=== PATIENT | male | born 1965 | race Caucasian/White ===

== ENCOUNTER 2023-04-03 08:46 | Inpatient (IN) | payer BC ==
[~2023-04-03] VITALS: Ht 154.7 cm; Wt 97.3 kg
[2023-04-03] VITALS (11 sets, daily range): BP systolic 121–151; BP diastolic 45–85; PULSE 64–74; RESP 13–30; TEMP 94.6–98.5
[2023-04-03] MEDS ORDERED: IPRATROPIUM BROMIDE (0.02%) 0.5MG/2.5ML NEB HHN STA (08:50)
[2023-04-03] MEDS ORDERED: METHYLPREDNISOLONE SOD SUCC 125MG/2ML (ACT-O-VIAL) IV STA (08:50)
[2023-04-03] MEDS ORDERED: MAGNESIUM 2 G PREMIX 50 ML IV STA (08:50)
[2023-04-03] MEDS ORDERED: ALBUTEROL (0.083%) 2.5MG/3ML NEB HHN STA (08:50)
[2023-04-03] MEDS ORDERED: METHYLPREDNISOLONE SOD SUCC 125MG VIAL IV SCH (09:00)
[2023-04-03 09:16] LABS: BASOPHILS % 1.1 % (0.0-2.0); EOSINOPHILS % 1.5 % (0.0-5.0); HEMATOCRIT. 43.2 % (42.0-52.0); HEMOGLOBIN. 14.7 g/dL (14.0-18.0); LYMPHOCYTES % 38.4 % (20.0-50.0); MEAN CORPUSCULAR HEMOGLOBIN 32.7 pg (28.0-32.0); MEAN CORPUSCULAR HGB CONC 33.9 g/dL (31.0-37.0); MEAN CORPUSCULAR VOLUME 96.2 fL (80.0-94.0); MEAN PLATELET VOLUME 8.4 fl (7.4-10.4); MONOCYTES % 7.9 % (2.0-8.0); NEUTROPHILS % 51.1 % (40.0-76.0); PLATELET 272 x1000/uL (130-400); RED BLOOD CELL COUNT 4.49 mill/uL (4.7-6.1); RED CELL DISTRIBUTION WIDTH 12.3 % (11.6-14.6); WHITE BLOOD COUNT 6.6 x1000/uL (4.5-11.0)
[2023-04-03 09:26] LABS: ALBUMIN 3.6 g/dL (3.4-5.0); CHLORIDE 111 mEq/L (98-107); INDEX HEMOLYSI 1 (1-3); INDEX ICTERIC 1 (1-4); INDEX LIPEMIC 1 (1-3); POTASSIUM 3.6 mEq/L (3.5-5.1); SODIUM 138 mEq/L (136-145)
[2023-04-03 09:34] LABS: BG BASE EXCESS -2.5 mmol/L (-2.0-2.0); BG CARBOXYHEMOGLOBIN 3.2 % (0.5-1.5); BG DEOXYHEMOGLOBIN 0.5 % (0.0-5.0); BG METHEMOGLOBIN 0.5 % (0.0-1.5); BG OXYGEN SATURATION 99.5 % (92.0-98.5); BG OXYHEMOGLOBIN 95.8 % (94.0-97.0); BG PCO2 42.4 mmHg (35.0-45.0); BG PH 7.353 (7.350-7.450); BG PO2 332.7 mmHg (75.0-100.0); BG SAMPLE SITE RIGHT RADIAL; BG TOTAL HEMOGLOBIN 15.4 g/dL (12.0-18.0); BG TOTAL RESPIRATORY RATE 29 b/min; BG VENT MODE MASK - BIPAP
[2023-04-03 09:37] LABS: ALANINE AMINOTRANSFERASE 36 IU/L (13-61); ASPARTATE AMINOTRANSFERASE 20 IU/L (15-37); BILIRUBIN TOTAL 0.3 mg/dL (0.1-1.0); CALCIUM 8.8 mg/dL (8.5-10.1); CARBON DIOXIDE 24 mEq/L (21-32); CREATININE 0.9 mg/dL (0.6-1.3); GLUCOSE 167 mg/dL (70-105); NT PRO B-TYPE NATRIURETIC PEP 96 pg/mL (5-125); PROTEIN TOTAL 7.1 g/dL (6.0-8.3); TROPONIN I HIGH SENSITIVITY 6 ng/L (<78); UREA NITROGEN BLOOD 12 mg/dL (7-21)
[2023-04-03 09:52] LABS: BG FRACTION INSPIRED OXYGEN 40
[2023-04-03] MEDS ORDERED: ACETAMINOPHEN 325MG TABLET PO PRN ×2 (11:30)
[2023-04-03] MEDS ORDERED: IPRATROPIUM/ALBUTEROL 0.5-3(2.5)MG/3ML NEB HHN PRN (11:30)
[2023-04-03] MEDS ORDERED: ONDANSETRON HCL 4MG/2ML INJ IV PRN (11:30)
[2023-04-03] MEDS ORDERED: DEXTROSE 50% WATER 50ML SYRINGE IV PRN ×2 (11:30→19:45)
[2023-04-03 12:13] LABS: INDEX HEMOLYSI 2 (1-3)
[2023-04-03 12:16] LABS: AMYLASE 41 IU/L (25-115)
[2023-04-03] MEDS: BLOOD SUGAR DIAGNOSTIC STRIP TEST SCH ×3 (12:30→20:28)
[2023-04-03] MEDS: MULTIVITAMINS,THER W-MINERALS TABLET PO SCH (13:35)
[2023-04-03] MEDS: METHYLPREDNISOLONE SOD SUCC 40MG/ML (ACT-O-VIAL) IV SCH ×2 (13:35→21:38)
[2023-04-03] MEDS: THIAMINE HCL 100MG TABLET PO SCH (13:35)
[2023-04-03 16:48] LABS: CREATINE KINASE MB FRACTION 1.9 ng/mL (0.5-3.6)
[2023-04-03] MEDS: IPRATROPIUM/ALBUTEROL 0.5-3(2.5)MG/3ML NEB HHN SCH (16:57)
[2023-04-03] MEDS: AZITHROMYCIN 500 MG in DEXT 5% WATER 250 ML IV SCH (17:04)
[2023-04-03] MEDS: INSULIN LISPRO 100 UNITS/ML SUBCUT SCH (20:34)
[2023-04-03] MEDS: FAMOTIDINE 20MG TABLET PO SCH (20:34)
[2023-04-04] VITALS (13 sets, daily range): BP systolic 108–139; BP diastolic 65–91; PULSE 61–83; RESP 15–20; TEMP 97.5–98; O2SAT 94–100
[2023-04-04] MEDS: IPRATROPIUM/ALBUTEROL 0.5-3(2.5)MG/3ML NEB HHN SCH ×6 (00:16→22:26)
[2023-04-04 01:34] LABS: CREATINE KINASE MB FRACTION 1.8 ng/mL (0.5-3.6)
[2023-04-04] MEDS: METHYLPREDNISOLONE SOD SUCC 40MG/ML (ACT-O-VIAL) IV SCH ×3 (05:39→22:09)
[2023-04-04 07:25] LABS: CALCIUM 8.5 mg/dL (8.5-10.1); CARBON DIOXIDE 25 mEq/L (21-32); CHLORIDE 109 mEq/L (98-107); INDEX HEMOLYSI 1 (1-3); INDEX ICTERIC 1 (1-4); INDEX LIPEMIC 1 (1-3); SODIUM 137 mEq/L (136-145); UREA NITROGEN BLOOD 11 mg/dL (7-21)
[2023-04-04 07:29] LABS: HEMATOCRIT. 40.3 % (42.0-52.0); MEAN CORPUSCULAR HEMOGLOBIN 33.1 pg (28.0-32.0); MEAN CORPUSCULAR HGB CONC 34.6 g/dL (31.0-37.0); MEAN CORPUSCULAR VOLUME 95.7 fL (80.0-94.0); MEAN PLATELET VOLUME 9.2 fl (7.4-10.4); PLATELET 232 x1000/uL (130-400); RED BLOOD CELL COUNT 4.21 mill/uL (4.7-6.1); RED CELL DISTRIBUTION WIDTH 12.5 % (11.6-14.6); WHITE BLOOD COUNT 9.6 x1000/uL (4.5-11.0)
[2023-04-04] MEDS: BLOOD SUGAR DIAGNOSTIC STRIP TEST SCH ×4 (07:30→22:05)
[2023-04-04 07:32] LABS: CREATININE 0.8 mg/dL (0.6-1.3); GLUCOSE 145 mg/dL (70-105); PHOSPHORUS 1.9 mg/dL (2.5-4.9)
[2023-04-04 07:37] LABS: DIFFERENTIAL COMMENT 1
[2023-04-04] MEDS: THIAMINE HCL 100MG TABLET PO SCH (09:17)
[2023-04-04] MEDS: INSULIN LISPRO 100 UNITS/ML SUBCUT SCH ×4 (09:17→22:10)
[2023-04-04] MEDS: MULTIVITAMINS,THER W-MINERALS TABLET PO SCH (09:17)
[2023-04-04] MEDS ORDERED: SODIUM PHOS,M-BASIC-D-BASIC 15 MM in DEXT 5% WATER 245 ML IV SCH (10:00)
[2023-04-04 11:41] LABS: PLATELET ESTIMATE NORMAL
[2023-04-04] MEDS: AZITHROMYCIN 500 MG in DEXT 5% WATER 250 ML IV SCH (14:53)
[2023-04-04] MEDS ORDERED: IOHEXOL-350 100 ML BOTTLE ONE (21:34)
[2023-04-04] MEDS: FAMOTIDINE 20MG TABLET PO SCH (22:09)
[2023-04-04] MEDS: NICOTINE 7MG PATCH TD SCH (22:32)
[2023-04-05] VITALS (8 sets, daily range): BP systolic 103–132; BP diastolic 59–87; PULSE 64–75; RESP 18–22; TEMP 97.5–98.3; O2SAT 95–98
[2023-04-05 06:09] LABS: HEMATOCRIT. 41.6 % (42.0-52.0); HEMOGLOBIN. 13.8 g/dL (14.0-18.0); MEAN CORPUSCULAR HEMOGLOBIN 32.1 pg (28.0-32.0); MEAN CORPUSCULAR HGB CONC 33.3 g/dL (31.0-37.0); MEAN CORPUSCULAR VOLUME 96.5 fL (80.0-94.0); MEAN PLATELET VOLUME 9.1 fl (7.4-10.4); PLATELET 258 x1000/uL (130-400); RED BLOOD CELL COUNT 4.31 mill/uL (4.7-6.1); RED CELL DISTRIBUTION WIDTH 13.1 % (11.6-14.6); WHITE BLOOD COUNT 13.4 x1000/uL (4.5-11.0)
[2023-04-05 06:10] LABS: CHLORIDE 107 mEq/L (98-107); DIFFERENTIAL COMMENT 1; INDEX HEMOLYSI 1 (1-3); INDEX ICTERIC 1 (1-4); INDEX LIPEMIC 1 (1-3); POTASSIUM 4.3 mEq/L (3.5-5.1); SODIUM 138 mEq/L (136-145)
[2023-04-05 06:16] LABS: CALCIUM 9.5 mg/dL (8.5-10.1); CARBON DIOXIDE 24 mEq/L (21-32); CREATININE 0.8 mg/dL (0.6-1.3); GLUCOSE 147 mg/dL (70-105); UREA NITROGEN BLOOD 13 mg/dL (7-21)
[2023-04-05] MEDS: BLOOD SUGAR DIAGNOSTIC STRIP TEST SCH ×2 (06:43→12:59)
[2023-04-05] MEDS: INSULIN LISPRO 100 UNITS/ML SUBCUT SCH ×2 (08:00→12:58)
[2023-04-05] MEDS: IPRATROPIUM/ALBUTEROL 0.5-3(2.5)MG/3ML NEB HHN SCH ×2 (08:14→16:42)
[2023-04-05] MEDS: THIAMINE HCL 100MG TABLET PO SCH (08:56)
[2023-04-05] MEDS: MULTIVITAMINS,THER W-MINERALS TABLET PO SCH (08:56)
[2023-04-05] MEDS: NICOTINE 7MG PATCH TD SCH (08:57)
[2023-04-05] MEDS: METHYLPREDNISOLONE SOD SUCC 40MG/ML (ACT-O-VIAL) IV SCH (08:57)
[2023-04-05 14:13] LABS: PLATELET ESTIMATE NORMAL
[2023-04-05] MEDS ORDERED: AZITHROMYCIN 500 MG TABLET PO SCH (15:00)
[2023-04-05] MEDS ORDERED: PRED5SOL22 PO (17:01)
[2023-04-05] MEDS ORDERED: [UNRECOGNIZED DRUG - CODE] PO (17:01)
[2023-04-05] MEDS ORDERED: PRED20SO3 PO (17:01)
[2023-04-05] MEDS ORDERED: ALBU05 NEB (17:02)
== END 2023-04-05 17:20 | disposition home or self-care (01) | DRG 189 ==
LOC: ER 08:46 → 5EST 10:52 → EDBEDREQTM 10:57 → EDBEDREQ 10:57
PROVIDERS: ADMIT Hospitalist; ATTEND Hospitalist
PROC: 5A09357 Assistance with Respiratory Ventilation, Less than 24 Consecutive Hours, Continuous Positive Airway Pressure (ICD-10-PCS; principal; 2023-04-03)
DX: J96.01 Acute respiratory failure with hypoxia (principal); J44.1 Chronic obstructive pulmonary disease with (acute) exacerbation; F19.10 Other psychoactive substance abuse, uncomplicated; E11.9 Type 2 diabetes mellitus without complications; F10.10 Alcohol abuse, uncomplicated; F17.210 Nicotine dependence, cigarettes, uncomplicated; R79.89 Other specified abnormal findings of blood chemistry; S30.1XXA Contusion of abdominal wall, initial encounter; X58.XXXA Exposure to other specified factors, initial encounter; Y93.89 Activity, other specified; Y92.89 Other specified places as the place of occurrence of the external cause; Y99.8 Other external cause status
CPT/HCPCS: 36415; 36600; 71045; 71275; 74018; 76705; 80048; 80053; 82150; 82375; 82553; 82805; 82962; 83036; 83735; 83880; 84100; 84484; 85025; 85379; 93005; 93970; 94640; 94644; 94660; 99285; J0456; J1815; J2920; J2930; J3475; J3490; J7060; Q9967

== ENCOUNTER 2023-04-05 21:56 | Emergency (ER) | payer BC ==
[~2023-04-05] VITALS: Ht 175.3 cm; Wt 95.0 kg
[~2023-04-05 21:56] MED LIST: ALBU05 NEB; PRED20SO3 PO; PRED5SOL22 PO; [UNRECOGNIZED DRUG - CODE] PO
[2023-04-05] MEDS ORDERED: PREDNISONE 20MG TABLET PO NR ×2 (22:25→23:00)
[2023-04-05] MEDS ORDERED: ALBUTEROL (0.083%) 2.5MG/3ML NEB HHN NR (22:25)
[2023-04-05] MEDS ORDERED: IPRATROPIUM BROMIDE (0.02%) 0.5MG/2.5ML NEB HHN NR (22:25)
[2023-04-05 22:43] LABS: BASOPHILS % 0.1 % (0.0-2.0); HEMATOCRIT. 41.2 % (42.0-52.0); LYMPHOCYTES % 10.7 % (20.0-50.0); MEAN CORPUSCULAR HEMOGLOBIN 32.8 pg (28.0-32.0); MEAN CORPUSCULAR HGB CONC 34.1 g/dL (31.0-37.0); MEAN CORPUSCULAR VOLUME 96.2 fL (80.0-94.0); MEAN PLATELET VOLUME 8.9 fl (7.4-10.4); NEUTROPHILS % 81.2 % (40.0-76.0); PLATELET 287 x1000/uL (130-400); RED BLOOD CELL COUNT 4.28 mill/uL (4.7-6.1); RED CELL DISTRIBUTION WIDTH 12.6 % (11.6-14.6); WHITE BLOOD COUNT 15.5 x1000/uL (4.5-11.0)
[2023-04-05 22:52] LABS: CHLORIDE 107 mEq/L (98-107); INDEX HEMOLYSI 1 (1-3); INDEX ICTERIC 1 (1-4); INDEX LIPEMIC 1 (1-3); SODIUM 138 mEq/L (136-145)
[2023-04-05] MEDS ORDERED: METHYLPREDNISOLONE SOD SUCC 125MG/2ML (ACT-O-VIAL) IV STA (22:53)
[2023-04-05] MEDS ORDERED: ONDANSETRON HCL 4MG/2ML INJ IV ONE (23:00)
[2023-04-05 23:01] LABS: ALANINE AMINOTRANSFERASE 38 IU/L (13-61); ALBUMIN 3.6 g/dL (3.4-5.0); ASPARTATE AMINOTRANSFERASE 14 IU/L (15-37); BILIRUBIN TOTAL 0.2 mg/dL (0.1-1.0); CALCIUM 9.1 mg/dL (8.5-10.1); CARBON DIOXIDE 28 mEq/L (21-32); CREATININE 0.8 mg/dL (0.6-1.3); ETHANOL BLOOD < 10 mg/dL (-10); GLUCOSE 103 mg/dL (70-105); NT PRO B-TYPE NATRIURETIC PEP 135 pg/mL (5-125); PROTEIN TOTAL 7.3 g/dL (6.0-8.3); TROPONIN I HIGH SENSITIVITY 4 ng/L (<78); UREA NITROGEN BLOOD 16 mg/dL (7-21)
[2023-04-05] MEDS ORDERED: METHYLPREDNISOLONE SOD SUCC 125MG VIAL IV NR (23:15)
[2023-04-05 23:58] LABS: *AMPHETAMINES SCREEN URINE NEGATIVE (NEGATIVE); *BARBITURATES SCREEN URINE NEGATIVE (NEGATIVE); *BENZODIAZEPINES SCREEN URINE NEGATIVE (NEGATIVE); *COCAINE SCREEN URINE NEGATIVE (NEGATIVE); CANNABINOID URINE SCREEN NEGATIVE (NEGATIVE); ECSTASY MDMA SCREEN URINE NEGATIVE (NEGATIVE); METHADONE URINE SCREEN NEGATIVE (NEGATIVE); OPIATES URINE SCREEN NEGATIVE (NEGATIVE); PHENCYCLIDINE URINE SCREEN NEGATIVE (NEGATIVE)
[2023-04-06 01:02] VITALS: PULSE 62; RESP 22; O2SAT 97
[2023-04-06 01:29] VITALS: BP 126/79; PULSE 84; RESP 26; TEMP 98.1
== END 2023-04-06 01:30 | disposition home or self-care (01) ==
LOC: ER 21:56 → CANBEDREQ 04-06 21:15
DX: J44.1 Chronic obstructive pulmonary disease with (acute) exacerbation (principal); F17.200 Nicotine dependence, unspecified, uncomplicated; R06.00 Dyspnea, unspecified; D72.829 Elevated white blood cell count, unspecified; Z91.148 Patient's other noncompliance with medication regimen for other reason
CPT/HCPCS: 80053; 80305; 80320; 83880; 85025; 84484; 36415; 71045; 93005; 96374; 96375; 99285; J2930; J2405; Z7610 ×5; G0480